=== PATIENT | female | born 1985 | race Caucasian/White ===

== ENCOUNTER 2016-06-14 16:46 | Emergency (ER) | payer OTHER ==
--- NOTE | 2016-06-14 18:38 | DIAGNOSTIC IMAGING REPORT ---
PROCEDURE: US SOFT TISSUE ANYWHERE INDICATION: ABSCESS TECHNIQUE: Parks scale and color Doppler sonographic images of the right lower dense abdominal wall were obtained COMPARISON: None. FINDINGS: Subcutaneous tissues are within normal limits. No evidence of fluid collection or abscess. IMPRESSION: 1. Negative ultrasound of the right lower ventral abdominal wall.
--- NOTE | 2016-06-14 20:46 | ED ORDER SUMMARY ---
..... Patient: FABIANO NOE OrderSheet [facility] VisitID: [id number] [place] [address] 30y, F Registration Date/Time: 06/14/2016 ORDER SHEET Weight: 110.2 kg (stated) Allergies: Morphine Sulfate, Tylenol, Vicoden GENERAL ORDERS: Blood Culture (No) (N/A) Urgent (17:51 06/14/2016 Vu GUNTER) (Ack 18:07 LMuller) (18:56 JSimbeck R.N.) US Soft Tissue Anywhere (abdominal wall) (evaluate for depth and extent of potential abdominal wall abscess. ) Urgent (17:52 06/14/2016 Vu GUNTER) (Ack 18:07 LMuller) (18:59 JSimbeck R.N.) CBC w Diff Urgent (17:53 06/14/2016 Vu GUNTER) (Ack 18:07 LMuller) (18:56 JSimbeck R.N.) Serum Quantitative Urgent (17:53 06/14/2016 Vu GUNTER) (Ack 18:07 LMuller) (18:56 JSimbeck R.N.) Culture, Wound Surface (Abdomen) (drainage) Urgent (18:57 06/14/2016 JSimbeck R.N. verbal order read back to Vu GUNTER) (18:57 JSimbeck R.N.) MEDICATION ORDERS: IV FLUIDS: IV Saline Lock (17:53 06/14/2016 Vu GUNTER) (18:56 JSimbeck R.N.) Cleocin IV 900 mg/50mL (NOW) (19:18 06/14/2016 Vu GUNTER) (19:27 EInderbitzen R.N.) ORDER SHEET NOTES: [Electronically signed by Libby Morales R.N. (21:04 06/14/2016)] [Electronically signed by Kunal Self MD (13:55 06/15/2016)] [Electronically locked/signed by Libby Morales R.N. (21:04 06/14/2016)]
--- NOTE | 2016-06-14 20:46 | ED CLINICAL REPORT ---
Clinical Report - Physicians/Mid Levels [facility] [address] [place] [address] 06/14/2016 16:47 Patient: FABIANO NOE Time Seen: 17:09. Arrived- By private vehicle. Historian- patient and significant other. CPT: ER phys charges level 4 (#[id number]). HISTORY OF PRESENT ILLNESS Chief Complaint: SKIN RASH. This started about 2 days [employer] and is still present. It is described as painful. It has been located on the right abdomen. A possible cause has been identified. (Pt states she noticed a pustule then popped it with a pin. Redness developed around lesion after that.). Similar symptoms previously: None. Recent medical care: The patient was seen recently at another facility in a clinic (today). Diagnosis: cellulitis. ( Sent to ER to r/o abscess and assess .). REVIEW OF SYSTEMS No fever, chills, sore throat, cough or difficulty breathing. No hoarseness, enlarged lymph nodes, eye irritation, chest pain or nausea. No diarrhea, difficulty with urination, joint pain or vomiting. The patient has had mild, constant abdominal pain (superficial related to the cellulitis). All systems otherwise negative, except as recorded above. PAST HISTORY Last normal menstrual period- 04/30. Currently . G 9. P 5. Ab 3. Bronchitis. Dysfunctional Uterine Bleeding. Problems. Pelvic Pain. Abscess. Otitis Media. Abdominal Pain. . Insomnia. Migraine Headache. Depression. Herpes Genitalis. ADDITIONAL SURGERIES: Appendectomy. Cholecystectomy. . Tonsillectomy. Medications: vits. Methadone HCl Oral 50mg , daily. Allergies: Morphine Sulfate. (headache) Tylenol.(rash) Vicoden.(rash). SOCIAL HISTORY Never smoker. No alcohol use or drug use. ADDITIONAL NOTES The nursing notes have been reviewed. PHYSICAL EXAM Vital Signs: 06/14/2016 17:05 BP: 136/81. HR: 100. RR: 20. O2 saturation: 95%. Temp: 98.5 F. Pain level now: 6/10. Appearance: Alert. No acute distress. Eyes: Pupils equal, round and reactive to light. Conjunctivae and eyelids normal. ENT: Nose normal. Pharynx normal. Neck: Neck supple. CVS: Normal heart rate and rhythm. Heart sounds normal. No cardiac murmur. Respiratory: No respiratory distress. Breath sounds normal. Chest nontender. Abdomen: (obese, tender over area of cellulitis only.). Skin: Medium area of cellulitis with erythema and warmth (no fluctuance noted but patient has a large paniculous so makes exam difficult.). Skin rash present. Rash present on the right abdomen. The rash is erythematous and confluent. Not pustular. There is warmth and tenderness. No lymphangitis. Extremities: Normal external inspection. Extremities nontender. Neuro: Oriented X 3. No motor deficit. No sensory deficit. LABS, X-RAYS, AND EKG Abdominal Sonogram: (superficfial cellulitis. Abdominal wall.). Laboratory Tests: CBC w Diff: (TC: 06/14/2016 18:45) ( [facility] 06/14/2016 19:00) Final results Test Result Flag Units (Reference) WHITE BLOOD COUNT 7.6 K/uL (4.5-11.5) RED BLOOD COUNT 4.14 M/uL (4.00-5.20) HEMOGLOBIN 12.0 gm/dL (12.0-16.0) HEMATOCRIT 35.5 L % (36.0-46.0) MEAN CELL VOLUME 86 fL (80-100) MEAN CORPUSCULAR HGB 29 pg (26-34) MEAN CORPUSCULAR HGB CONC 34 g/dL (31-37) RED CELL DISTRIBUTION WIDTH 12.9 % (11.6-14.8) PLATELET COUNT 300 K/uL (150-400) NEUTROPHIL % 55.8 % (50-75) LYMPH % 31.0 % (25-40) MONO % 7.9 % (3-14) EOSINOPHIL % 4.6 H % (0-4) BASOPHIL % 0.7 % (0-2) Serum Quantitative: (TC: 06/14/2016 18:45) ( [facility] 06/14/2016 19:40) Final results Test Result Flag Units (Reference) BETA HCG, QUANTITATIVE 2077 mIU/mL REFERENCE RANGE:Adult Males: <2 mIU/mLNon- Females: <6 mIU/mL Females:Approximate Approximate hCGGestational Age Range (mIU/mL) 0-1 week 0-501-2 weeks 40-3002-3 weeks 100-23003-8 weeks 500-08919-1 months 5,000-200,0002-3 months 10,000-100,0002nd trimester 3,000-50,0003rd trimester 1,000-50,000 Culture, Wound Surface: (TC: 06/14/2016 18:50) ( MsgRcvd 06/15/2016 10:26) IP SPECIMEN DESCRIPTION: DRAINAGE Test Result Flag Units (Reference) GRAM STAIN, WOUND, SUPERFICIAL DATE: 06/14/16 NO CELLS/NO BACTERIA: NO CELLS OR BACTERIA SEEN CULTURE, WOUND, SUPERFICIAL DATE: 06/15/16 PRELIM REPORT: PRELIMINARY REPORT #1 -- STAAUR GROWTH: HEAVY GROWTH ID AND SENS TO FOLLOW: SENSITIVITY TO FOLLOW . PROGRESS AND PROCEDURES Course of Care: Long discussion with patient over the US results and expectations she has of the ER. Pt says she is here to r/o an abscess over the abdominal wall and to have baby checked by US as she thinks she is . Pt indicates she had ad positive test 7 weeks ago . She then had an episode of heavy bleeding so was not sure if she was still . She had subsequent home tests that were positive but because of the bleeding is not sure how far along she is. She insists that she wants an US to see if the baby is healthy because of her history of "uterine rupture" with her last at [facility]. She indicates that she twice and was brought back while on the surgical table. Had to have blood transfusions. She also indicates that her Doctor said it would be OK to get again. I let her know first of all that she did not have an abscess of the abdominal wall and that she needed to be treated with antibiotics and close follow up. Cleocin 900 mg IV given. Secondly I ran a Quantitative HCG showing a level of about 2,000 consistent with a 6-7 week which fits her LMP timing. That there was no obstetric emergency as she had no pain consistent with labor or misscarriage. That she had no vaginal bleeding or discharge. That an emergent US was not indicated despite her and history of "uterine rupture". She was not satisfied with this but I told her I would not do an obstetric US today and that she would have to get her OB Doctor to do this. Pt does not have a PCP or OB Doctor. She is referred to the [facility] clinic for further treatment and evaluation. Patient/family counseled. Disposition: Discharged. Condition: stable. CLINICAL IMPRESSION Cellulitis of the abdominal wall. First trimester ; positive test in emergency department. INSTRUCTIONS Apply moist heat for 15-20 minutes three times a day for seven days until better. Drink plenty of fluids. Warnings: Further evaluation is necessary. Your Current Medications: CONTINUE TAKING THE FOLLOWING MEDICATIONS: Methadone HCl Oral : 50mg daily. vits*. Prescription Medications: Cleocin 300 mg: take 1 capsule orally every 6 hours for 7 days. No refills. Substitution is permissible. OTC Medications: Acetaminophen (available over the counter): take according to label instructions. Understanding of the discharge instructions verbalized by patient. Follow-up with: [facility], , , [address], , [place], [address] Follow up Sunday in two days. Call for the next available appointment. Reason for referral: referred from the ER for cellulitis and evaluation. (Electronically signed by Kunal Self MD 06/15/2016 13:55)
--- NOTE | 2016-06-14 20:46 | ED ORDER SUMMARY ---
..... Patient: FABIANO NOE OrderSheet [facility] VisitID: [id number] [place] [address] 30y, F Registration Date/Time: 06/14/2016 ORDER SHEET Weight: 110.2 kg (stated) Allergies: Morphine Sulfate, Tylenol, Vicoden GENERAL ORDERS: Blood Culture (No) (N/A) Urgent (17:51 06/14/2016 Vu GUNTER) (Ack 18:07 LMuller) (18:56 JSimbeck R.N.) US Soft Tissue Anywhere (abdominal wall) (evaluate for depth and extent of potential abdominal wall abscess. ) Urgent (17:52 06/14/2016 Vu GUNTER) (Ack 18:07 LMuller) (18:59 JSimbeck R.N.) CBC w Diff Urgent (17:53 06/14/2016 Vu GUNTER) (Ack 18:07 LMuller) (18:56 JSimbeck R.N.) Serum Quantitative Urgent (17:53 06/14/2016 Vu GUNTER) (Ack 18:07 LMuller) (18:56 JSimbeck R.N.) Culture, Wound Surface (Abdomen) (drainage) Urgent (18:57 06/14/2016 JSimbeck R.N. verbal order read back to Vu GUNTER) (18:57 JSimbeck R.N.) MEDICATION ORDERS: IV FLUIDS: IV Saline Lock (17:53 06/14/2016 Vu GUNTER) (18:56 JSimbeck R.N.) Cleocin IV 900 mg/50mL (NOW) (19:18 06/14/2016 Vu GUNTER) (19:27 EInderbitzen R.N.) ORDER SHEET NOTES: [Electronically signed by Libby Morales R.N. (21:04 06/14/2016)] [Electronically signed by Kunal Self MD (13:55 06/15/2016)] [Electronically locked/signed by Libby Morales R.N. (21:04 06/14/2016)]
--- NOTE | 2016-06-14 20:46 | ED NURSING NOTES ---
Clinical Report - Nurses [facility] [address] [place] [address] 06/14/2016 16:47 Patient: FABIANO NOE TRIAGE Triage time 1708. Acuity: LEVEL 3. Chief Complaint: BOIL and TENDER AREA. --17:22 Natalie Monroy R.N. 17:05 06/14/16. BP: 136/81. HR: 100. RR: 20. O2 saturation: 95% on room air. Temp: 98.5 F. Pain level now: 10/14. --17:22 Natalie Monroy R.N. Weight: 110.2 kg stated. Height/Length: 61 inches Per Patient. BMI: 45.9. --17:19 Natalie Monroy R.N. Medications Methadone HCl Oral 50mg , daily. --17:19 Natalie Monroy R.N. vits. --17:19 Natalie Monroy R.N. Allergies Morphine Sulfate. (headache) Tylenol.(rash) Vicoden.(rash) --17:19 Natalie Monroy R.N. History Arrived by private vehicle. Historian: patient. Accompanied by friend. Primary physician (sandeep). Reported as (Rt lower abd wall redness x 2-3 days, increased pain today, [facility] and told to go to ED for US to determin depth of abscess and possibly to guide I&D). It is described as burning and painful. ( Pt has had positive preg tests, but no US done). PAST MEDICAL HX: Last normal menstrual period- 04/30. Currently . G 9. P 5. Ab 3. ( Hx of MRSA). SOCIAL HX: Never smoker. No alcohol use or drug use. --17:22 Natalie Monroy R.N. PROBLEMS: Bronchitis. Dysfunctional Uterine Bleeding. Problems. Pelvic Pain. Abscess. Otitis Media. Abdominal Pain. . Insomnia. Migraine Headache. Depression. Herpes Genitalis. --17:18 Natalie Monroy R.N. ADDITIONAL SURGERIES: Appendectomy. Cholecystectomy. . Tonsillectomy. --17:18 Natalie Monroy R.N. Interventions ID band on patient. To treatment room. --17:22 Natalie Monroy R.N. PHYSICAL ASSESSMENT 17:08. Patient gowned. GENERAL / NEURO / PSYCH: Alert. The patient does not appear to be in acute distress. Oriented X 4. HEENT: Mucous membranes are pink. RESPIRATORY: Respirations not labored. CVS: Capillary refill less than 2 seconds. SKIN: Skin is warm and dry. Purulent drainage. Skin tenderness present. Increased warmth present. Erythema present. --17:23 Natalie Monroy R.N. NURSING PROGRESS NOTES 17:08. Patient gowned. Head of bed elevated. Reassurance given. Patient identifiers checked. Call light placed in reach. Side rails up. Bed placed in lowest position. Patient ready for evaluation- chart flagged. --17:22 Natalie Monroy R.N. 18:45 06/14/2016 Site #1 started via IV in the left antecubital space with an 20g angiocath, with aseptic technique and good blood return; two attempts. Blood drawn: rainbow set and cultures x1. Labeled in the presence of the patient and sent to the lab. Saline lock flushed with 10 mL saline. --18:56 Jani Nevarez R.N. 19:03 06/14/16. Care transferred and report received (from REAGAN Gunter). --19:03 Libby Morales R.N. 19:26 06/14/2016 Started 900 mg of Cleocin (Clindamycin Phosphate) IVPB in bag #1 50 mL; at 50 mL/hr over 60 minute(s) via site #1; Allergies verified and confirmed 5 rights. IV patency established. IV site checked: no pain, redness, or swelling. IV flushed thoroughly pre- and post-medication administration. --19:27 Libby Morales R.N. late entry - 20:05 06/14/16. ( Patient disconnected her IV antibiotics and clamped iv site. Site remains patent. flushed with 10 ml nss and reclamped). --21:00 Libby Morales R.N. 20:05 06/14/2016 Cleocin IVPB Discontinued: completed. Total amount infused: 50 mL. --20:35 Libby Morales R.N. 20:50 06/14/2016 Site #1 removed upon discharge. Bandaid applied (Patient removed her own IV stating she was "in a hurry to leave" she put the IV catheter in the sharps container. No bleeding from IV site observed at discharge). --21:02 Libby Morales R.N. DISPOSITION / DISCHARGE 20:50 06/14/16. Departure time: 20:50 Jun 14 2016. Condition at departure: improved and stable. The goals identified in the patient's plan of care were met. No learning barriers present. Discharge instructions provided and reviewed with the patient. Reviewed medication(s) side effects, precautions, dosing and course information. Prescription(s) given to the patient (clindamycin). Reviewed referral to an dispensing optician apprentice for followup and testing. Summary of care provided to patient. Patient verbalized understanding. Written instructions provided in [place]. The patient was discharged home and accompanied by family. She left the Emergency Department ambulatory and via private vehicle. Family member driving. --21:03 Libby Morales R.N. 17:05 06/14/16. BP: 136/81. HR: 100. RR: 20. O2 saturation: 95% on room air. Temp: 98.5 F. Pain level now: 10/14. --21:03 Libby Morales R.N. Locked/Released at 06/14/2016 21:04 by Libby Morales R.N.
--- NOTE | 2016-06-14 20:46 | ED NURSING NOTES ---
Clinical Report - Nurses [facility] [address] [place] [address] 06/14/2016 16:47 Patient: FABAINO NOE TRIAGE Triage time 1708. Acuity: LEVEL 3. Chief Complaint: BOIL and TENDER AREA. --17:22 Natalie Monroy R.N. 17:05 06/14/16. BP: 136/81. HR: 100. RR: 20. O2 saturation: 95% on room air. Temp: 98.5 F. Pain level now: 10/14. --17:22 Natalie Monroy R.N. Weight: 110.2 kg stated. Height/Length: 61 inches Per Patient. BMI: 45.9. --17:19 Natalie Monroy R.N. Medications Methadone HCl Oral 50mg , daily. --17:19 Natalie Monroy R.N. vits. --17:19 Natalie Monroy R.N. Allergies Morphine Sulfate. (headache) Tylenol.(rash) Vicoden.(rash) --17:19 Natalie Monroy R.N. History Arrived by private vehicle. Historian: patient. Accompanied by friend. Primary physician (sandeep). Reported as (Rt lower abd wall redness x 2-3 days, increased pain today, [facility] told to go to ED for US to determin depth of abscess and possibly to guide I&D). It is described as burning and painful. ( Pt has had positive preg tests, but no US done). PAST MEDICAL HX: Last normal menstrual period- 04/30. Currently . G 9. P 5. Ab 3. ( Hx of MRSA). SOCIAL HX: Never smoker. No alcohol use or drug use. --17:22 Natalie Monroy R.N. PROBLEMS: Bronchitis. Dysfunctional Uterine Bleeding. Problems. Pelvic Pain. Abscess. Otitis Media. Abdominal Pain. . Insomnia. Migraine Headache. Depression. Herpes Genitalis. --17:18 Natalie Monroy R.N. ADDITIONAL SURGERIES: Appendectomy. Cholecystectomy. . Tonsillectomy. --17:18 Natalie Monroy R.N. Interventions ID band on patient. To treatment room. --17:22 Natalie Monroy R.N. PHYSICAL ASSESSMENT 17:08. Patient gowned. GENERAL / NEURO / PSYCH: Alert. The patient does not appear to be in acute distress. Oriented X 4. HEENT: Mucous membranes are pink. RESPIRATORY: Respirations not labored. CVS: Capillary refill less than 2 seconds. SKIN: Skin is warm and dry. Purulent drainage. Skin tenderness present. Increased warmth present. Erythema present. --17:23 Natalie Monroy R.N. NURSING PROGRESS NOTES 17:08. Patient gowned. Head of bed elevated. Reassurance given. Patient identifiers checked. Call light placed in reach. Side rails up. Bed placed in lowest position. Patient ready for evaluation- chart flagged. --17:22 Natalie Monroy R.N. 18:45 06/14/2016 Site #1 started via IV in the left antecubital space with an 20g angiocath, with aseptic technique and good blood return; two attempts. Blood drawn: rainbow set and cultures x1. Labeled in the presence of the patient and sent to the lab. Saline lock flushed with 10 mL saline. --18:56 Jani Nevarez R.N. 19:03 06/14/16. Care transferred and report received (from REAGAN Gunter). --19:03 Libby Morales R.N. 19:26 06/14/2016 Started 900 mg of Cleocin (Clindamycin Phosphate) IVPB in bag #1 50 mL; at 50 mL/hr over 60 minute(s) via site #1; Allergies verified and confirmed 5 rights. IV patency established. IV site checked: no pain, redness, or swelling. IV flushed thoroughly pre- and post-medication administration. --19:27 Libby Morales R.N. late entry - 20:05 06/14/16. ( Patient disconnected her IV antibiotics and clamped iv site. Site remains patent. flushed with 10 ml nss and reclamped). --21:00 Libby Morales R.N. 20:05 06/14/2016 Cleocin IVPB Discontinued: completed. Total amount infused: 50 mL. --20:35 Libby Morales R.N. 20:50 06/14/2016 Site #1 removed upon discharge. Bandaid applied (Patient removed her own IV stating she was "in a hurry to leave" she put the IV catheter in the sharps container. No bleeding from IV site observed at discharge). --21:02 Libby Morales R.N. DISPOSITION / DISCHARGE 20:50 06/14/16. Departure time: 20:50 Jun 14 2016. Condition at departure: improved and stable. The goals identified in the patient's plan of care were met. No learning barriers present. Discharge instructions provided and reviewed with the patient. Reviewed medication(s) side effects, precautions, dosing and course information. Prescription(s) given to the patient (clindamycin). Reviewed referral to an disassembler product for followup and testing. Summary of care provided to patient. Patient verbalized understanding. Written instructions provided in [place]ym[place]. The patient was discharged home and accompanied by family. She left the Emergency Department ambulatory and via private vehicle. Family member driving. --21:03 Libby Morales R.N. 17:05 06/14/16. BP: 136/81. HR: 100. RR: 20. O2 saturation: 95% on room air. Temp: 98.5 F. Pain level now: 10/14. --21:03 Libby Morales R.N. Locked/Released at 06/14/2016 21:04 by Libby Morales R.N.
--- NOTE | 2016-06-14 20:46 | ED CLINICAL REPORT ---
Clinical Report - Physicians/Mid Levels [facility] [address] [place] [address] 06/14/2016 16:47 Patient: FABIANO NOE Time Seen: 17:09. Arrived- By private vehicle. Historian- patient and significant other. CPT: ER phys charges level 4 (#[id number]). HISTORY OF PRESENT ILLNESS Chief Complaint: SKIN RASH. 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 It is described as painful. It has been located on the right abdomen. A possible cause has been identified. (Pt states she noticed a pustule then popped it with a pin. Redness developed around lesion after that.). Similar symptoms previously: None. Recent medical care: The patient was seen recently at another facility in a clinic (today). Diagnosis: cellulitis. ( Sent to ER to r/o abscess and assess .). REVIEW OF SYSTEMS No fever, chills, sore throat, cough or difficulty breathing. No hoarseness, enlarged lymph nodes, eye irritation, chest pain or nausea. No diarrhea, difficulty with urination, joint pain or vomiting. The patient has had mild, constant abdominal pain (superficial related to the cellulitis). All systems otherwise negative, except as recorded above. PAST HISTORY Last normal menstrual period- 04/30. Currently . G 9. P 5. Ab 3. Bronchitis. Dysfunctional Uterine Bleeding. Problems. Pelvic Pain. Abscess. Otitis Media. Abdominal Pain. . Insomnia. Migraine Headache. Depression. Herpes Genitalis. ADDITIONAL SURGERIES: Appendectomy. Cholecystectomy. . Tonsillectomy. Medications: vits. Methadone HCl Oral 50mg , daily. Allergies: Morphine Sulfate. (headache) Tylenol.(rash) Vicoden.(rash). SOCIAL HISTORY Never smoker. No alcohol use or drug use. ADDITIONAL NOTES The nursing notes have been reviewed. PHYSICAL EXAM Vital Signs: 06/14/2016 17:05 BP: 136/81. HR: 100. RR: 20. O2 saturation: 95%. Temp: 98.5 F. Pain level now: 6/10. Appearance: Alert. No acute distress. Eyes: Pupils equal, round and reactive to light. Conjunctivae and eyelids normal. ENT: Nose normal. Pharynx normal. Neck: Neck supple. CVS: Normal heart rate and rhythm. Heart sounds normal. No cardiac murmur. Respiratory: No respiratory distress. Breath sounds normal. Chest nontender. Abdomen: (obese, tender over area of cellulitis only.). Skin: Medium area of cellulitis with erythema and warmth (no fluctuance noted but patient has a large paniculous so makes exam difficult.). Skin rash present. Rash present on the right abdomen. The rash is erythematous and confluent. Not pustular. There is warmth and tenderness. No lymphangitis. Extremities: Normal external inspection. Extremities nontender. Neuro: Oriented X 3. No motor deficit. No sensory deficit. LABS, X-RAYS, AND EKG Abdominal Sonogram: (superficfial cellulitis. Abdominal wall.). Laboratory Tests: CBC w Diff: (TC: 06/14/2016 18:45) ( [facility] 06/14/2016 19:00) Final results Test Result Flag Units (Reference) WHITE BLOOD COUNT 7.6 K/uL (4.5-11.5) RED BLOOD COUNT 4.14 M/uL (4.00-5.20) HEMOGLOBIN 12.0 gm/dL (12.0-16.0) HEMATOCRIT 35.5 L % (36.0-46.0) MEAN CELL VOLUME 86 fL (80-100) MEAN CORPUSCULAR HGB 29 pg (26-34) MEAN CORPUSCULAR HGB CONC 34 g/dL (31-37) RED CELL DISTRIBUTION WIDTH 12.9 % (11.6-14.8) PLATELET COUNT 300 K/uL (150-400) NEUTROPHIL % 55.8 % (50-75) LYMPH % 31.0 % (25-40) MONO % 7.9 % (3-14) EOSINOPHIL % 4.6 H % (0-4) BASOPHIL % 0.7 % (0-2) Serum Quantitative: (TC: 06/14/2016 18:45) ( [facility] 06/14/2016 19:40) Final results Test Result Flag Units (Reference) BETA HCG, QUANTITATIVE 2077 mIU/mL REFERENCE RANGE:Adult Males: <2 mIU/mLNon- Females: <6 mIU/mL Females:Approximate Approximate hCGGestational Age Range (mIU/mL) 0-1 week 0-501-2 weeks 40-3002-3 weeks 100-86283-9 weeks 500-77427-6 months 5,000-200,0002-3 months 10,000-100,0002nd trimester 3,000-50,0003rd trimester 1,000-50,000 Culture, Wound Surface: (TC: 06/14/2016 18:50) ( [facility] 06/15/2016 10:26) IP SPECIMEN DESCRIPTION: DRAINAGE Test Result Flag Units (Reference) GRAM STAIN, WOUND, SUPERFICIAL DATE: 06/14/16 NO CELLS/NO BACTERIA: NO CELLS OR BACTERIA SEEN CULTURE, WOUND, SUPERFICIAL DATE: 06/15/16 PRELIM REPORT: PRELIMINARY REPORT #1 -- STAAUR GROWTH: HEAVY GROWTH ID AND SENS TO FOLLOW: SENSITIVITY TO FOLLOW . PROGRESS AND PROCEDURES Course of Care: Long discussion with patient over the US results and expectations she has of the ER. Pt says she is here to r/o an abscess over the abdominal wall and to have baby checked by US as she thinks she is . Pt indicates she had ad positive test 7 weeks ago . She then had an episode of heavy bleeding so was not sure if she was still . She had subsequent home tests that were positive but because of the bleeding is not sure how far along she is. She insists that she wants an US to see if the baby is healthy because of her history of "uterine rupture" with her last at [facility]. She indicates that she twice and was brought back while on the surgical table. Had to have blood transfusions. She also indicates that her Doctor said it would be OK to get again. I let her know first of all that she did not have an abscess of the abdominal wall and that she needed to be treated with antibiotics and close follow up. Cleocin 900 mg IV given. Secondly I ran a Quantitative HCG showing a level of about 2,000 consistent with a 6-7 week which fits her LMP timing. That there was no obstetric emergency as she had no pain consistent with labor or misscarriage. That she had no vaginal bleeding or discharge. That an emergent US was not indicated despite her and history of "uterine rupture". She was not satisfied with this but I told her I would not do an obstetric US today and that she would have to get her OB Doctor to do this. Pt does not have a PCP or OB Doctor. She is referred to the [facility] clinic for further treatment and evaluation. Patient/family counseled. Disposition: Discharged. Condition: stable. CLINICAL IMPRESSION Cellulitis of the abdominal wall. First trimester ; positive test in emergency department. INSTRUCTIONS Apply moist heat for 15-20 minutes three times a day for seven days until better. Drink plenty of fluids. Warnings: Further evaluation is necessary. Your Current Medications: CONTINUE TAKING THE FOLLOWING MEDICATIONS: Methadone HCl Oral : 50mg daily. vits*. Prescription Medications: Cleocin 300 mg: take 1 capsule orally every 6 hours for 7 days. No refills. Substitution is permissible. OTC Medications: Acetaminophen (available over the counter): take according to label instructions. Understanding of the discharge instructions verbalized by patient. Follow-up with: [facility], , , [address], , [place], [id number] Follow up Sunday in two days. Call for the next available appointment. Reason for referral: referred from the ER for cellulitis and evaluation. (Electronically signed by Kunal Self MD 06/15/2016 13:55)
--- NOTE | 2016-06-15 13:55 | ED MAR SUMMARY ---
..... Medication Administration Record [facility] [address] [place] [address] Patient: FABIANO NOE Visit ID: [id number] 30y, F Weight: 110.2 kg Height/Length: 61 in BMI: 45.9 ALLERGIES: Morphine Sulfate, Tylenol, Vicoden Start 19:26 06/14/2016 Libby Morales R.N., Stop 20:05 06/14/2016 Libby Morales R.N. Medication Administered: CLEOCIN [IVPB] (CLINDAMYCIN PHOSPHATE), Dose: 900 mg IVPB over 60 minute(s), Rate: 50 mL/hr, Dispensed: 50 mL bag, Site: #1 left . Medication Ordered: Cleocin IV 900 mg/50mL (NOW).
--- NOTE | 2016-06-15 13:55 | ED MED RECONCILIATION SUMMARY ---
Patient: FABIANO NOE Medication Reconciliation Report [facility] VisitID: [id number] [address] [place] [address] 30y, F Registration Date/Time: 06/14/2016 Weight: 110.2 kg Height/Length: 61 in. BMI: 45.9 ALLERGIES: Morphine Sulfate, Tylenol, Vicoden The patient's Home Medications are listed below: CONTINUE TAKING THE FOLLOWING MEDICATIONS: Methadone HCl Oral 50mg , daily vits The source(s) of the original Home Medication information: Not obtained. The following Medications were given to the patient in the Emergency Department: Cleocin [IVPB] IVPB bolus 0, then 900 mg 50 mL/hr, administered: 06/14/2016 7:26:00 PM The following Medications were prescribed to the patient: Acetaminophen (available over the counter): take according to label instructions. -- Kunal Self MD Cleocin 300 mg: take 1 capsule orally every 6 hours for 7 days. No refills. Substitution is permissible. -- Kunal Self MD
--- NOTE | 2016-06-15 13:55 | ED MAR SUMMARY ---
..... Medication Administration Record [facility] [address] [place] [address] Patient: FABIANO NOE Visit ID: [id number] 30y, F Weight: 110.2 kg Height/Length: 61 in BMI: 45.9 ALLERGIES: Morphine Sulfate, Tylenol, Vicoden Start 19:26 06/14/2016 Libby Morales R.N., Stop 20:05 06/14/2016 Libby Morales R.N. Medication Administered: CLEOCIN [IVPB] (CLINDAMYCIN PHOSPHATE), Dose: 900 mg IVPB over 60 minute(s), Rate: 50 mL/hr, Dispensed: 50 mL bag, Site: #1 left . Medication Ordered: Cleocin IV 900 mg/50mL (NOW).
--- NOTE | 2016-06-15 13:55 | ED DISCHARGE INSTRUCTIONS ---
Patient: FABIANO NOE General Instructions [facility] VisitID: [id number] [address] [place] [place] [address] 30y, F Registration Date/Time: 06/14/2016 Cellulitis of the abdominal wall. First trimester ; positive test in emergency department. INSTRUCTIONS Apply moist heat for 15-20 minutes three times a day for seven days until better. Drink plenty of fluids. Warnings: Further evaluation is necessary. Your Current Medications: CONTINUE TAKING THE FOLLOWING MEDICATIONS: Methadone HCl Oral : 50mg daily. vits*. Prescription Medications: Cleocin 300 mg: take 1 capsule orally every 6 hours for 7 days. No refills. Substitution is permissible. OTC Medications: Acetaminophen (available over the counter): take according to label instructions. Understanding of the discharge instructions verbalized by patient. Follow-up with: [facility], , , [address], [place], [id number] Follow up Sunday in two days. Call for the next available appointment. Reason for referral: referred from the ER for cellulitis and evaluation. ADDITIONAL INFORMATION Cellulitis You have an infection of the skin known as cellulitis. This usually starts with a scrape, cut, insect bite, blister or other opening in the skin which becomes infected. This is a serious condition. It must be watched closely to be sure the infection is not spreading. With antibiotic treatment, the size of the red area will gradually shrink in size until the skin returns to normal. This will take 7-10 days. The red area should never increase in size once the antibiotic medicine has been started. Occasionally, an infection will be resistant to one antibiotic and another one will have to be used. Home Care: 1) Limit the use of the affected part, since excess movement can cause the infection to spread. 2) If the infection is on your leg, walk as little as possible during the first few days of the treatment. Keep your leg elevated while sitting. This will reduce swelling. 3) Take all of the antibiotic medicine exactly as directed until it is gone. Be careful not to miss any doses, especially during the first seven days. Follow Up with your doctor or this facility as directed. Check the infected area daily for the warning signs listed below. Get Prompt Medical Attention if any of the following occur: -- Spreading area of redness -- Increasing swelling or pain -- Appearance of pus or drainage -- Fever over 100.4 F (38.0 C) oral, or over 101.4 F (38.6 C) rectal, after two days on antibiotics Your exam today shows that you are . During , it is normal to develop tender swollen breasts, frequent urination and mild vaginal discharge. During the first three months, nausea is common. Guidelines For A Healthy : To ensure that your baby is born healthy there are certain things that you can do: When you feel tired, you should REST. This is especially true in the later months of . Your body needs more FLUIDS than you may be used to: You should drink 8-10 glasses of juice, milk or water. Eat well-balanced MEALS at regular intervals to supply your body with enough protein. You can expect a total weight gain of about 30 pounds during the . Do not try to diet or lose weight while you are . Because of the extra nutritional needs during , take one VITAMIN daily. Do not take any other MEDICINE during your (prescribed or [id number]) unless your doctor specifically recommends this. Many drugs can have harmful effects on the growing baby. If NAUSEA or VOMITING become a problem, avoid greasy and fried foods. Eat several smaller meals throughout the day rather than three large meals. If you SMOKE, you must stop. The nicotine you breathe in goes right to the baby. Stay away from ALCOHOL, even in moderate amounts. Daily drinking will harm your baby and can cause permanent brain damage. RECREATIONAL DRUGS are harmful, especially cocaine, crack, and heroin. Marijuana should also be avoided. If you were using recreational drugs or prescribed medicine when you found out that you were , talk to your doctor about possible effects on the fetus. Follow Up: Call to arrange for care. This can be provided by your family doctor, an weaver apprentice ( specialist) or a primary care clinic. Get Prompt Medical Attention if any of the following occur: Vaginal bleeding Moderate or severe abdominal or back pain Excessive vomiting, unable to keep any fluids down for six hours Burning with urination Headache, dizziness or rapid weight gain You have been given the following additional information: Cellulitis , New Dx (Electronically signed by Kunal Self MD 06/15/2016 13:55)
--- NOTE | 2016-06-15 13:55 | ED MED RECONCILIATION SUMMARY ---
Patient: FABIANO NOE Medication Reconciliation Report [facility] VisitID: [id number] [address] [place] [address] 30y, F Registration Date/Time: 06/14/2016 Weight: 110.2 kg Height/Length: 61 in. BMI: 45.9 ALLERGIES: Morphine Sulfate, Tylenol, Vicoden The patient's Home Medications are listed below: CONTINUE TAKING THE FOLLOWING MEDICATIONS: Methadone HCl Oral 50mg , daily vits The source(s) of the original Home Medication information: Not obtained. The following Medications were given to the patient in the Emergency Department: Cleocin [IVPB] IVPB bolus 0, then 900 mg 50 mL/hr, administered: 06/14/2016 7:26:00 PM The following Medications were prescribed to the patient: Acetaminophen (available over the counter): take according to label instructions. -- Kunal Self MD Cleocin 300 mg: take 1 capsule orally every 6 hours for 7 days. No refills. Substitution is permissible. -- Kunal Self MD
--- NOTE | 2016-06-15 13:55 | ED DISCHARGE INSTRUCTIONS ---
Patient: FABIANO NOE General Instructions [facility] VisitID: [id number] [address] [place] [address] 30y, F Registration Date/Time: 06/14/2016 Cellulitis of the abdominal wall. First trimester ; positive test in emergency department. INSTRUCTIONS Apply moist heat for 15-20 minutes three times a day for seven days until better. Drink plenty of fluids. Warnings: Further evaluation is necessary. Your Current Medications: CONTINUE TAKING THE FOLLOWING MEDICATIONS: Methadone HCl Oral : 50mg daily. vits*. Prescription Medications: Cleocin 300 mg: take 1 capsule orally every 6 hours for 7 days. No refills. Substitution is permissible. OTC Medications: Acetaminophen (available over the counter): take according to label instructions. Understanding of the discharge instructions verbalized by patient. Follow-up with: [facility], , , [address], [place], [id number] Follow up Sunday in two days. Call for the next available appointment. Reason for referral: referred from the ER for cellulitis and evaluation. ADDITIONAL INFORMATION Cellulitis You have an infection of the skin known as cellulitis. This usually starts with a scrape, cut, insect bite, blister or other opening in the skin which becomes infected. This is a serious condition. It must be watched closely to be sure the infection is not spreading. With antibiotic treatment, the size of the red area will gradually shrink in size until the skin returns to normal. This will take 7-10 days. The red area should never increase in size once the antibiotic medicine has been started. Occasionally, an infection will be resistant to one antibiotic and another one will have to be used. Home Care: 1) Limit the use of the affected part, since excess movement can cause the infection to spread. 2) If the infection is on your leg, walk as little as possible during the first few days of the treatment. Keep your leg elevated while sitting. This will reduce swelling. 3) Take all of the antibiotic medicine exactly as directed until it is gone. Be careful not to miss any doses, especially during the first seven days. Follow Up with your doctor or this facility as directed. Check the infected area daily for the warning signs listed below. Get Prompt Medical Attention if any of the following occur: -- Spreading area of redness -- Increasing swelling or pain -- Appearance of pus or drainage -- Fever over 100.4 F (38.0 C) oral, or over 101.4 F (38.6 C) rectal, after two days on antibiotics Your exam today shows that you are . During , it is normal to develop tender swollen breasts, frequent urination and mild vaginal discharge. During the first three months, nausea is common. Guidelines For A Healthy : To ensure that your baby is born healthy there are certain things that you can do: When you feel tired, you should REST. This is especially true in the later months of . Your body needs more FLUIDS than you may be used to: You should drink 8-10 glasses of juice, milk or water. Eat well-balanced MEALS at regular intervals to supply your body with enough protein. You can expect a total weight gain of about 30 pounds during the . Do not try to diet or lose weight while you are . Because of the extra nutritional needs during , take one VITAMIN daily. Do not take any other MEDICINE during your (prescribed or ahkn-gtq-[id number]) unless your doctor specifically recommends this. Many drugs can have harmful effects on the growing baby. If NAUSEA or VOMITING become a problem, avoid greasy and fried foods. Eat several smaller meals throughout the day rather than three large meals. If you SMOKE, you must stop. The nicotine you breathe in goes right to the baby. Stay away from ALCOHOL, even in moderate amounts. Daily drinking will harm your baby and can cause permanent brain damage. RECREATIONAL DRUGS are harmful, especially cocaine, crack, and heroin. Marijuana should also be avoided. If you were using recreational drugs or prescribed medicine when you found out that you were , talk to your doctor about possible effects on the fetus. Follow Up: Call to arrange for care. This can be provided by your family doctor, an mohs surgeon/general dermatologist ( specialist) or a primary care clinic. Get Prompt Medical Attention if any of the following occur: Vaginal bleeding Moderate or severe abdominal or back pain Excessive vomiting, unable to keep any fluids down for six hours Burning with urination Headache, dizziness or rapid weight gain You have been given the following additional information: Cellulitis , New Dx (Electronically signed by Kunal Self MD 06/15/2016 13:55)
== END 2016-06-14 20:50 | disposition home or self-care (01) ==
LOC: ED SRH 16:46
DX: O99.711 Diseases of the skin and subcutaneous tissue complicating pregnancy, first trimester (principal); L02.211 Cutaneous abscess of abdominal wall; Z3A.01 Less than 8 weeks gestation of pregnancy; Z88.5 Allergy status to narcotic agent; Z88.6 Allergy status to analgesic agent
CPT/HCPCS: 90065; 90070; 90131; 90197; 90309; 91672; 95059

== ENCOUNTER 2016-07-18 11:50 | Emergency (ER) | payer OTHER ==
--- NOTE | 2016-07-18 14:52 | ED CLINICAL REPORT ---
Clinical Report - Physicians/Mid Levels [facility] [address] [place] [address] 07/18/2016 11:51 Patient: FABIANO NOE Time Seen: 1205; initial documentation. Arrived- By private vehicle. Historian- patient. HISTORY OF PRESENT ILLNESS Chief Complaint: ABDOMINAL PAIN. At its maximum, severity described as moderate. When seen in the E.D., severity described as moderate. Modifying factors. Not worsened by anything. Not relieved by anything. This started few days ago and is still present (staying the same). It was abrupt in onset and has been intermittent but is not gone now. It is described as sharp and cramping. No radiation. It is described as located in the lower abdomen. The patient has had nausea, vomiting and diarrhea. No additional abdominal pain. (+ sick contacts. no new unusual food, recent travel, or recent abx. reports being on methadon >80 mg a day. States that it feels like withdrawals. reports not being able to keep the medication down. no vaginal bleeding No abnormal discharge.). No recent travel. Similar symptoms previously: None. Recent medical care: Not recently seen/assessed. REVIEW OF SYSTEMS No fever. All systems otherwise negative, except as recorded above. PAST HISTORY See nurses notes. Medications: Methadone HCl Oral. SOCIAL HISTORY Never smoker. No alcohol use or drug use. No recent travel. Is a local resident. ADDITIONAL NOTES The nursing notes have been reviewed. PHYSICAL EXAM Vital Signs: 07/18/2016 11:58 BP: 119/69. HR: 96. RR: 16. O2 saturation: 98%. Temp: 99.1 F. Pain level now: 7/10. Blood pressure normal. Oxygen saturation normal. Appearance: Alert. Oriented X3. No acute distress. (above average BMI). Eyes: Pupils equal, round and reactive to light. Eyes normal inspection. ENT: Ears normal. Nose normal. Pharynx normal. Neck: Normal inspection. Neck supple. CVS: Normal heart rate and rhythm. Heart sounds normal. Pulses normal. Respiratory: No respiratory distress. Breath sounds normal. Chest nontender. Abdomen: Soft and nontender. Bowel sounds normal. No mass. Skin: Skin warm and dry. Normal skin color. No rash. Normal skin turgor. Extremities: Extremities exhibit normal ROM. No lower extremity edema. LABS, X-RAYS, AND EKG Abdominal Sonogram: (PROCEDURE: US OB 1ST TRIMESTER W/TRANSVAG INDICATION: ABDO PAIN AND CHECK VIABILITY TECHNIQUE: Parks scale, color, and spectral Doppler transabdominal and endovaginal sonographic images of the first trimester gravid uterus were obtained. COMPARISON: None. FINDINGS: TRANSABDOMINAL SCANS: Single intrauterine gestational sac. Normal maternal kidneys. TRANSVAGINAL SCANS: Yolk sac present. [place]-rump length 28.5 mm, 9 weeks 5 days. Heart rate 176 bpm. SUSANNE 02/15/2017. Ovaries are unremarkable. Normal closed cervix measures 4.9 cm. IMPRESSION: 1. Single live intrauterine 9 weeks 5 days). Laboratory Tests: UA-Culture if indicated: (TC: 07/18/2016 12:10) ( [facility] 07/18/2016 12:42) Final results Test Result Flag Units (Reference) URINE COLOR YELLOW URINE APPEARANCE CLEAR URINE GLUCOSE NEGATIVE (NEGATIVE) URINE BILIRUBIN NEGATIVE (NEGATIVE) URINE KETONE NEGATIVE (NEGATIVE) URINE SPECIFIC GRAVITY 1.025 (1.010-1.030) URINE PH 7.0 (5.0-8.0) URINE PROTEIN NEGATIVE (NEGATIVE) URINE UROBILINOGEN 0.2 EU/dL (0.2-1.0) URINE NITRITE NEGATIVE (NEGATIVE) URINE BLOOD NEGATIVE (NEGATIVE) URINE LEUK ESTERASE NEGATIVE (NEGATIVE) URINE RBC NONE SEEN rbc/hpf (0-1) URINE WBC RARE wbc/hpf (0-1) URINE EPITHELIAL CELLS >15 EPI/hpf (0-5) URINE BACTERIA TRACE (<1+) (NONE SEEN) URINE COMMENT CULT NOT INDICATED URINE CULTURES ARE SET-UP BASED ON THE FOLLOWING CRITERIA:POSITIVE NITRITEPOSITIVE LEUKOCYTE ESTERASEGREATER THAN 10 WHITE BLOOD CELLSMODERATE (2+) OR GREATER BACTERIA Urine: (TC: 07/18/2016 12:10) ( [facility] 07/18/2016 12:31) Final results Test Result Flag Units (Reference) URINE POSITIVE CBC w Diff: (TC: 07/18/2016 13:08) ( [facility] 07/18/2016 13:38) Final results Test Result Flag Units (Reference) WHITE BLOOD COUNT 9.9 K/uL (4.5-11.5) RED BLOOD COUNT 4.72 M/uL (4.00-5.20) HEMOGLOBIN 13.8 gm/dL (12.0-16.0) HEMATOCRIT 40.6 % (36.0-46.0) MEAN CELL VOLUME 86 fL (80-100) MEAN CORPUSCULAR HGB 29 pg (26-34) MEAN CORPUSCULAR HGB CONC 34 g/dL (31-37) RED CELL DISTRIBUTION WIDTH 12.9 % (11.6-14.8) NEUTROPHIL % 70.1 % (50-75) LYMPH % 21.4 L % (25-40) MONO % 5.2 % (3-14) EOSINOPHIL % 2.7 % (0-4) BASOPHIL % 0.6 % (0-2) CMP: (TC: 07/18/2016 13:08) ( [facility] 07/18/2016 15:26) Final results Test Result Flag Units (Reference) GLUCOSE 90 mg/dL (70-110) BUN 6 L mg/dL (7-18) CREATININE 0.6 mg/dL (0.6-1.3) Estimated GFR >60 mL/min Estimated GFR- >60 mL/min Note: Persistent reduction over 3 months in eGFR<60 mL/min/1.73 m2 defines CKD. Patients with eGFR values>=60 mL/min/1.73 m2 may also have CKD if evidence ofpersistent proteinuria. Additional information may be foundat www.kidney.org. SODIUM 137 mmol/L (136-145) POTASSIUM 3.7 mmol/L (3.5-5.1) CHLORIDE 102 mmol/L (98-107) CARBON DIOXIDE 27 mmol/L (21-32) CALCIUM 8.8 mg/dL (8.5-10.1) TOTAL PROTEIN 7.3 g/dL (6.4-8.2) ALBUMIN 3.3 g/dL (3.3-5.0) BILIRUBIN, TOTAL 0.5 mg/dL (0.0-1.0) ALKALINE PHOSPHATASE 67 U/L (46-116) AST (SGOT) 106 H U/L (15-37) ALT (SGPT) 138 H U/L (12-78) LIPASE 117 U/L (73-393) BETA HCG, QUANTITATIVE 619853 mIU/mL REFERENCE RANGE:Adult Males: <2 mIU/mLNon- Females: <6 mIU/mL Females:Approximate Approximate hCGGestational Age Range (mIU/mL) 0-1 week 0-501-2 weeks 40-3002-3 weeks 100-74840-1 weeks 500-65680-6 months 5,000-200,0002-3 months 10,000-100,0002nd trimester 3,000-50,0003rd trimester 1,000-50,000 . PROGRESS AND PROCEDURES Course of Care: the patient is a pleasant 30-year-old female presenting for evaluation of nausea and vomiting. At this time differential diagnosis includes thank otitis, hepatitis, orviral type of infectious process. Patient also could have hyperemesis gravidarum. Patient be evaluated with laboratory studies including urinalysis and ultrasound of the patient's current . Patient is agreeable to the treatment and plan. Pain medication has been offered. Patient workup does not show any acute abnormalities. Patient's is noted to be consistent with dates with the being9 weeks and 5 days on an ultrasound here today. Patient is resting in bed and in no acute distress. Symptoms improved dramatically with medication here in the emergency department. Patient's workup was only remarkable for slight elevation in liver enzymes. I discussion with patient in regards to follow up of her liver enzymes. Do not fill this is consistent with help syndrome as the patient is only in the first trimester . Blood pressures also noted to be Within normal limits. I discussion with patient in regards to her workup, diagnosis, home care, follow-up, and return precautions. All questions have been answered. The patient was agreeable to the treatment and plan. Patient is a good outpatient candidate. Patient is already established care with an SEED BUYER. Patient is encouraged to follow up with her Dr. Disposition: Discharged. Condition: good. CLINICAL IMPRESSION Acute abdominal pain. Ultrasound demonstrated an intrauterine . Vomiting with nausea (acute). Diarrhea (acute). 07/18/2016 11:58 BP: 119/69. HR: 96. RR: 16. O2 saturation: 98%. Temp: 99.1 F. Pain level now: 7/10. Blood pressure normal. Oxygen saturation normal. Narcotic withdrawal (acute). mild transaminitis, acute. INSTRUCTIONS Warnings: GENERAL WARNINGS: Return or contact your physician immediately if your condition worsens or changes unexpectedly, if not improving as expected, or if other problems arise. SPECIFICALLY, return if you develop pain, fever, vomiting, the inability to keep fluids down, blood in vomitus, blood in diarrhea, fainting or lightheadedness. Your Current Medications: CONTINUE TAKING THE FOLLOWING MEDICATIONS: Methadone HCl Oral. Prescription Medications: Phenergan 25 mg suppositories: insert 1 rectally every 8 hours as needed for nausea or vomiting. Dispense twenty (20). No refill. Substitution is permissible Follow-up: Return to the emergency department as needed. Follow up with your doctor in three days. Reason for referral: recheck today's concerns. Summary of care provided to patient via paper. Screening today revealed the patient's blood pressure to be in the normal range. The patient should follow up with a primary care provider for blood pressure management. Understanding of the discharge instructions verbalized by patient. (Electronically signed by Quincy Shankar Dr. 07/23/2016 15:50) Addenda for KRAIG NOELalo Villareal VisitID: [id number] Date: 07/18/2016 07/18/2016 17:20 Received call from [facility] regarding pt's script. Pt requesting at pharmacy to change MN phenergan to PO phenergan. Informed that script would not be changed to PO phenergan. Then received call from patient stating she is upset that she was rx'd a MN medication and "there's no way I'm taking anything rectally." Spoke with Dr Shankar, script changed to zofran 4mg ODT q8 hours PRN #10. Zofran script called into pharmacy and instructed pharmacy that zofran is replacing phenergan rx, not to fill phenergan script. (Electronically signed by Antonio Jose R.N. - 07/18/2016 17:20)
--- NOTE | 2016-07-18 14:52 | ED ORDER SUMMARY ---
..... Patient: FABIANO NOE [facility] VisitID[facility] [id number] [place] [address] 30y, F Registration Date/Time: 07/18/2016 ORDER SHEET Weight: 145.1 kg (estimated) Allergies: Morphine Sulfate, Tylenol, Vicoden GENERAL ORDERS: UA-Culture if indicated Urgent (12:11 07/18/2016 RMarsden R.N. per protocol) (Ack 12:12 KHoerner) (12:18 RMarsden R.N.) Urine Urgent (12:15 07/18/2016 RMarsden R.N. per protocol) (Ack 12:16 GINAoerner) (12:18 RMarsden R.N.) (Cancelled: Duplicate Order12:33 Denise Rao) US OB Limited (May 02, 2016) Urgent (12:32 07/18/2016 Denise Rao) (Ack 12:34 Simran) (Cancelled: Duplicate Order12:44 Denise Rao) CBC w Diff Urgent (12:32 07/18/2016 Denise Rao) (Ack 12:34 Simran) (Ack 12:34 RMarsden R.N.) (13:37 KWilliams R.N.) CMP Urgent (12:32 07/18/2016 Denise Rao) (Ack 12:34 Simran) (Ack 12:34 RMarsden R.N.) (13:37 KWilliams R.N.) Lipase Urgent (12:32 07/18/2016 Denise Rao) (Ack 12:34 GINAoerner) (Ack 12:34 RMarsden R.N.) (13:37 KWilliams R.N.) Serum Quantitative Urgent (12:32 07/18/2016 Denise Rao) (Ack 12:34 GINAoerner) (Ack 12:34 RMarsden R.N.) (13:37 KWilliams R.N.) US OB 1st Trimester w Transvag (May 02, 2016) Urgent (12:44 07/18/2016 Denise Rao) (Ack 12:46 Simran) (14:12 KWilliams R.N.) MEDICATION ORDERS: Zofran PO 4 mg (NOW, for Nausea & Vomiting) (12:11 07/18/2016 Jennifer R.N. per protocol) (12:17 RMarsden R.N.) IV FLUIDS: Dilaudid IV 2 mg (HIGH ALERT MEDICATION, NOW) (12:32 07/18/2016 Denise Rao) (Ack 12:33 OLIMPIAarsden R.N.) (13:34 RMarsden R.N.) IV NS : initial bolus 1000 mL (1000 mL/hr), then none - for X1 (NOW) (13:12 07/18/2016 Denise Rao) (Ack 13:24 RMarsden R.N.) (13:32 RMarsden R.N.) ORDER SHEET NOTES: [Electronically signed by Audrey Ulloa R.N. (19:13 07/18/2016)] [Electronically signed by Quincy Shankar Dr. (15:50 07/23/2016)] [Electronically locked/signed by Audrey Ulloa R.N. (19:13 07/18/2016)]
--- NOTE | 2016-07-18 14:52 | ED NURSING NOTES ---
Clinical Report - Nurses [facility] [place] [address] 07/18/2016 11:51 [id number] Triage time 11:58. Acuity: LEVEL 3. Chief Complaint: ABDOMINAL PAIN and CRAMPS. 12:06 07/18/16. Alert. No acute distress. SEPSIS SCREEN: Sepsis Screen. Negative (no infection suspected/documented). RADHA COMA SCORE: Radha Coma Scale: 15- eyes open spontaneously (4); best verbal response- oriented x 4 (5); best motor response- obeys commands (6). --12:06 Audrey Ulloa R.N. 11:58 07/18/16. BP: 119/69. HR: 96. RR: 16. O2 saturation: 98%. Temp: 99.1 F. Pain level now: 11/13. --12:06 Audrey Ulloa R.N. Weight: 145.1 kg estimated. Height/Length: 62 inches Estimated. BMI: 58.6. --13:36 Audrey Ulloa R.N. Medications Methadone HCl Oral. --11:58 Audrey Ulloa R.N. vits. --15:38 Audrey Ulloa R.N. Allergies Morphine Sulfate. (headache) Tylenol.(rash) Vicoden.(rash) --15:38 Audrey Ulloa R.N. History Historian: patient. ( pt states she has been on methadone for 2-3 years. Pt states "I think I'm having pain and vomiting because I'm going through methadone withdrawal.). She has had vomiting. ( light bleeding yesterday). Treatment [employer]: (heating pad, motion sickness). PAST MEDICAL HX: Immunizations: up-to-date. Currently : 10 weeks. In 1st trimester. SOCIAL HX: Never smoker. No alcohol use or drug use. FALL RISK ASSESSMENT: Fall risk assessment completed. No fall risk identified. NUTRITIONAL RISK ASSESSMENT: The nutritional risk assessment revealed no deficiencies. FUNCTIONAL ASSESSMENT: Functional assessment: no impairments noted. LEARNING NEEDS ASSESSMENT: The learning needs assessment revealed no barriers. SKIN INTEGRITY ASSESSMENT: Skin integrity risk assessment completed. No skin integrity risk identified. --12:06 Audrey Ulloa R.N. PROBLEMS: Cellulitis. Bronchitis. Dysfunctional Uterine Bleeding. Problems. Pelvic Pain. Abscess. Viral Disease. Otitis Media. Abdominal Pain. Immunizations. Insomnia. Migraine Headache. Depression. Herpes Genitalis. LNMP - Last Normal Menstrual Period. --11:59 Audrey Ulloa R.N. The following entry was modified by Audrey Ulloa R.N., 12:05 <<STRICKEN ENTRY-- . --21:59 Audrey Ulloa R.N. --END STRIKE>>. ADDITIONAL SURGERIES: Appendectomy. Cholecystectomy. . Tonsillectomy. --12:05 Audrey Ulloa R.N. Interventions ID band on patient. To treatment room. --12:06 Audrey Ulloa R.N. PHYSICAL ASSESSMENT 12:07/18/16. Ambulatory to room. GENERAL / NEURO / PSYCH: Alert. Oriented X 4. Appears in no acute distress. RESPIRATORY: Respirations not labored. CVS: Capillary refill less than 2 seconds. EXTREMITIES: No lower extremity edema. SKIN: Skin is warm and dry. --12:06 Audrey Ulloa R.N. NURSING PROGRESS NOTES 12:07/18/16. Patient gowned. Two patient identifiers checked. Call light placed in reach. Bed placed in lowest position. Brakes of bed on. Patient ready for evaluation- chart flagged and notification provided. Patient and family informed about reason for wait and about plan of care. --12:07 Audrey Ulloa R.N. 12:07/18/2016 Zofran (Ondansetron HCl) PO Tablets 4 mg given. Allergies verified and confirmed 5 rights. --12: Audrey Ulloa R.N. 12:07/18/16. Patient ID band checked for patient name and birthdate: patient confirmed. Instructions provided to collect clean catch urine and patient verbalized understanding. Clean catch urine collected with return of yellow-colored clear urine; sample sent to lab for urinalysis and HCG. Specimen labeled in the presence of the patient. --12: Audrey Ulloa R.N. 13:31 07/18/2016 Site #1 started via IV in the right antecubital space with an 18g angiocath; four attempts. Blood drawn: rainbow set. Labeled in the presence of the patient and sent to the lab. Saline lock flushed with 3 mL saline (This RN made two IV attempts. REAGAN Isaac made 2 attempts.). --13:31 Audrey Ulloa R.N. 13:32 07/18/2016 Started bag #1 1000 mL IV Fluids IV NS (Saline); bolus of 1000 mL wide open via site #1. Allergies verified and confirmed 5 rights. IV patency established. IV site checked: no pain, redness, or swelling. IV flushed thoroughly pre- and post-medication administration. --13:32 Audrey Ulloa R.N. 13:34 07/18/2016 Dilaudid (HYDROmorphone HCl PF) IVP 3 mg given over 2 minute(s) via site #1. Sedative warning given to the patient. IV patency established. IV site checked: no pain, redness, or swelling. IV flushed thoroughly pre- and post-medication administration. IVP given by RN. --13:34 Audrey Ulloa R.N. 13:36 07/18/16. ( 18 gauge placed in RAC with ultrasound guidance x 20 minutes). --13:36 Antonio Jose R.N. 13:44 07/18/16. ( ultrasound in room with pt.). --13:44 Audrey Ulloa R.N. 14:42 07/18/16. Patient informed about reason for wait and about plan of care. ( Pt stated her pain was not relieved by dilaudid. Dr. Shankar notified. Pt is now resting in room with lights dimmed.). --14:43 Audrey Ulloa R.N. DISPOSITION / DISCHARGE 15:37 07/18/16. No learning barriers present. Discharge instructions provided and reviewed with the patient. Reviewed medication(s). Treatments reviewed. Patient verbalized understanding. Written instructions provided in [place]. The patient was discharged by the physician. She was discharged home and accompanied by spouse. She left the Emergency Department ambulatory and via private vehicle. Spouse driving. ( pt waiting in room until gets here.). --15:37 Audrey Ulloa R.N. 15:27 07/18/16. BP: 110/60. HR: 81. RR: 15. O2 saturation: 98%. Temp: deferred. Pain level now: 11/13. --15:37 Audrey Ulloa R.N. Locked/Released at 07/18/2016 19:13 by Audrey Ulloa R.N.
--- NOTE | 2016-07-18 14:52 | ED CLINICAL REPORT ---
Clinical Report - Physicians/Mid Levels [facility] [address] [place] [address] 07/18/2016 11:51 Patient: FABIANO NOE Time Seen: 1205; initial documentation. Arrived- By private vehicle. Historian- patient. HISTORY OF PRESENT ILLNESS Chief Complaint: ABDOMINAL PAIN. At its maximum, severity described as moderate. When seen in the E.D., severity described as moderate. Modifying factors. Not worsened by anything. Not relieved by anything. This started few days ago and is still present (staying the same). It was abrupt in onset and has been intermittent but is not gone now. It is described as sharp and cramping. No radiation. It is described as located in the lower abdomen. The patient has had nausea, vomiting and diarrhea. No additional abdominal pain. (+ sick contacts. no new unusual food, recent travel, or recent abx. reports being on methadon >80 mg a day. States that it feels like withdrawals. reports not being able to keep the medication down. no vaginal bleeding No abnormal discharge.). No recent travel. Similar symptoms previously: None. Recent medical care: Not recently seen/assessed. REVIEW OF SYSTEMS No fever. All systems otherwise negative, except as recorded above. PAST HISTORY See nurses notes. Medications: Methadone HCl Oral. SOCIAL HISTORY Never smoker. No alcohol use or drug use. No recent travel. Is a local resident. ADDITIONAL NOTES The nursing notes have been reviewed. PHYSICAL EXAM Vital Signs: 07/18/2016 11:58 BP: 119/69. HR: 96. RR: 16. O2 saturation: 98%. Temp: 99.1 F. Pain level now: 7/10. Blood pressure normal. Oxygen saturation normal. Appearance: Alert. Oriented X3. No acute distress. (above average BMI). Eyes: Pupils equal, round and reactive to light. Eyes normal inspection. ENT: Ears normal. Nose normal. Pharynx normal. Neck: Normal inspection. Neck supple. CVS: Normal heart rate and rhythm. Heart sounds normal. Pulses normal. Respiratory: No respiratory distress. Breath sounds normal. Chest nontender. Abdomen: Soft and nontender. Bowel sounds normal. No mass. Skin: Skin warm and dry. Normal skin color. No rash. Normal skin turgor. Extremities: Extremities exhibit normal ROM. No lower extremity edema. LABS, X-RAYS, AND EKG Abdominal Sonogram: (PROCEDURE: US OB 1ST TRIMESTER W/TRANSVAG INDICATION: ABDO PAIN AND CHECK VIABILITY TECHNIQUE: Parks scale, color, and spectral Doppler transabdominal and endovaginal sonographic images of the first trimester gravid uterus were obtained. COMPARISON: None. FINDINGS: TRANSABDOMINAL SCANS: Single intrauterine gestational sac. Normal maternal kidneys. TRANSVAGINAL SCANS: Yolk sac present. [place]-rump length 28.5 mm, 9 weeks 5 days. Heart rate 176 bpm. SUSANNE 02/15/2017. Ovaries are unremarkable. Normal closed cervix measures 4.9 cm. IMPRESSION: 1. Single live intrauterine 9 weeks 5 days). Laboratory Tests: UA-Culture if indicated: (TC: 07/18/2016 12:10) ( [facility] 07/18/2016 12:42) Final results Test Result Flag Units (Reference) URINE COLOR YELLOW URINE APPEARANCE CLEAR URINE GLUCOSE NEGATIVE (NEGATIVE) URINE BILIRUBIN NEGATIVE (NEGATIVE) URINE KETONE NEGATIVE (NEGATIVE) URINE SPECIFIC GRAVITY 1.025 (1.010-1.030) URINE PH 7.0 (5.0-8.0) URINE PROTEIN NEGATIVE (NEGATIVE) URINE UROBILINOGEN 0.2 EU/dL (0.2-1.0) URINE NITRITE NEGATIVE (NEGATIVE) URINE BLOOD NEGATIVE (NEGATIVE) URINE LEUK ESTERASE NEGATIVE (NEGATIVE) URINE RBC NONE SEEN rbc/hpf (0-1) URINE WBC RARE wbc/hpf (0-1) URINE EPITHELIAL CELLS >15 EPI/hpf (0-5) URINE BACTERIA TRACE (<1+) (NONE SEEN) URINE COMMENT CULT NOT INDICATED URINE CULTURES ARE SET-UP BASED ON THE FOLLOWING CRITERIA:POSITIVE NITRITEPOSITIVE LEUKOCYTE ESTERASEGREATER THAN 10 WHITE BLOOD CELLSMODERATE (2+) OR GREATER BACTERIA Urine: (TC: 07/18/2016 12:10) ( [facility] 07/18/2016 12:31) Final results Test Result Flag Units (Reference) URINE POSITIVE CBC w Diff: (TC: 07/18/2016 13:08) ( [facility] 07/18/2016 13:38) Final results Test Result Flag Units (Reference) WHITE BLOOD COUNT 9.9 K/uL (4.5-11.5) RED BLOOD COUNT 4.72 M/uL (4.00-5.20) HEMOGLOBIN 13.8 gm/dL (12.0-16.0) HEMATOCRIT 40.6 % (36.0-46.0) MEAN CELL VOLUME 86 fL (80-100) MEAN CORPUSCULAR HGB 29 pg (26-34) MEAN CORPUSCULAR HGB CONC 34 g/dL (31-37) RED CELL DISTRIBUTION WIDTH 12.9 % (11.6-14.8) NEUTROPHIL % 70.1 % (50-75) LYMPH % 21.4 L % (25-40) MONO % 5.2 % (3-14) EOSINOPHIL % 2.7 % (0-4) BASOPHIL % 0.6 % (0-2) CMP: (TC: 07/18/2016 13:08) ( [facility] 07/18/2016 15:26) Final results Test Result Flag Units (Reference) GLUCOSE 90 mg/dL (70-110) BUN 6 L mg/dL (7-18) CREATININE 0.6 mg/dL (0.6-1.3) Estimated GFR >60 mL/min Estimated GFR- >60 mL/min Note: Persistent reduction over 3 months in eGFR<60 mL/min/1.73 m2 defines CKD. Patients with eGFR values>=60 mL/min/1.73 m2 may also have CKD if evidence ofpersistent proteinuria. Additional information may be foundat [email or web address].org. SODIUM 137 mmol/L (136-145) POTASSIUM 3.7 mmol/L (3.5-5.1) CHLORIDE 102 mmol/L (98-107) CARBON DIOXIDE 27 mmol/L (21-32) CALCIUM 8.8 mg/dL (8.5-10.1) TOTAL PROTEIN 7.3 g/dL (6.4-8.2) ALBUMIN 3.3 g/dL (3.3-5.0) BILIRUBIN, TOTAL 0.5 mg/dL (0.0-1.0) ALKALINE PHOSPHATASE 67 U/L (46-116) AST (SGOT) 106 H U/L (15-37) ALT (SGPT) 138 H U/L (12-78) LIPASE 117 U/L (73-393) BETA HCG, QUANTITATIVE 186295 mIU/mL REFERENCE RANGE:Adult Males: <2 mIU/mLNon- Females: <6 mIU/mL Females:Approximate Approximate hCGGestational Age Range (mIU/mL) 0-1 week 0-501-2 weeks 40-3002-3 weeks 100-54380-5 weeks 500-94524-1 months 5,000-200,0002-3 months 10,000-100,0002nd trimester 3,000-50,0003rd trimester 1,000-50,000 . PROGRESS AND PROCEDURES Course of Care: the patient is a pleasant 30-year-old female presenting for evaluation of nausea and vomiting. At this time differential diagnosis includes thank otitis, hepatitis, orviral type of infectious process. Patient also could have hyperemesis gravidarum. Patient be evaluated with laboratory studies including urinalysis and ultrasound of the patient's current . Patient is agreeable to the treatment and plan. Pain medication has been offered. Patient workup does not show any acute abnormalities. Patient's is noted to be consistent with dates with the being9 weeks and 5 days on an ultrasound here today. Patient is resting in bed and in no acute distress. Symptoms improved dramatically with medication here in the emergency department. Patient's workup was only remarkable for slight elevation in liver enzymes. I discussion with patient in regards to follow up of her liver enzymes. Do not fill this is consistent with help syndrome as the patient is only in the first trimester . Blood pressures also noted to be Within normal limits. I discussion with patient in regards to her workup, diagnosis, home care, follow-up, and return precautions. All questions have been answered. The patient was agreeable to the treatment and plan. Patient is a good outpatient candidate. Patient is already established care with an [facility]. Patient is encouraged to follow up with her Dr. Disposition: Discharged. Condition: good. CLINICAL IMPRESSION Acute abdominal pain. Ultrasound demonstrated an intrauterine . Vomiting with nausea (acute). Diarrhea (acute). 07/18/2016 11:58 BP: 119/69. HR: 96. RR: 16. O2 saturation: 98%. Temp: 99.1 F. Pain level now: 7/10. Blood pressure normal. Oxygen saturation normal. Narcotic withdrawal (acute). mild transaminitis, acute. INSTRUCTIONS Warnings: GENERAL WARNINGS: Return or contact your physician immediately if your condition worsens or changes unexpectedly, if not improving as expected, or if other problems arise. SPECIFICALLY, return if you develop pain, fever, vomiting, the inability to keep fluids down, blood in vomitus, blood in diarrhea, fainting or lightheadedness. Your Current Medications: CONTINUE TAKING THE FOLLOWING MEDICATIONS: Methadone HCl Oral. Prescription Medications: Phenergan 25 mg suppositories: insert 1 rectally every 8 hours as needed for nausea or vomiting. Dispense twenty (20). No refill. Substitution is permissible Follow-up: Return to the emergency department as needed. Follow up with your doctor in three days. Reason for referral: recheck today's concerns. Summary of care provided to patient via paper. Screening today revealed the patient's blood pressure to be in the normal range. The patient should follow up with a primary care provider for blood pressure management. Understanding of the discharge instructions verbalized by patient. (Electronically signed by Quincy Shankar Dr. 07/23/2016 15:50) Addenda for KRAIG NOELalo Villareal VisitID: [id number] Date: 07/18/2016 07/18/2016 17:20 Received call from [facility] regarding pt's script. Pt requesting at pharmacy to change HI phenergan to PO phenergan. Informed that script would not be changed to PO phenergan. Then received call from patient stating she is upset that she was rx'd a HI medication and "there's no way I'm taking anything rectally." Spoke with Dr Shankar, script changed to zofran 4mg ODT q8 hours PRN #[id number]. Zofran script called into pharmacy and instructed pharmacy that zofran is replacing phenergan rx, not to fill phenergan script. (Electronically signed by Antonio Jose R.N. - 07/18/2016 17:20)
--- NOTE | 2016-07-18 14:52 | ED ORDER SUMMARY ---
..... Patient: FABIANO NOE OrderSheet [facility] VisitID: [id number] [place] [address] 30y, F Registration Date/Time: 07/18/2016 ORDER SHEET Weight: 145.1 kg (estimated) Allergies: Morphine Sulfate, Tylenol, Vicoden GENERAL ORDERS: UA-Culture if indicated Urgent (12:11 07/18/2016 RMarsden R.N. per protocol) (Ack 12:12 KHoerner) (12:18 RMarsden R.N.) Urine Urgent (12:15 07/18/2016 RMarsden R.N. per protocol) (Ack 12:16 GINAoerner) (12:18 RMarsden R.N.) (Cancelled: Duplicate Order12:33 Denise Rao) US OB Limited (May 02, 2016) Urgent (12:32 07/18/2016 Denise Rao) (Ack 12:34 Simran) (Cancelled: Duplicate Order12:44 Denise Rao) CBC w Diff Urgent (12:32 07/18/2016 Denise Rao) (Ack 12:34 Simran) (Ack 12:34 RMarsden R.N.) (13:37 KWilliams R.N.) CMP Urgent (12:32 07/18/2016 Denise Rao) (Ack 12:34 Simran) (Ack 12:34 RMarsden R.N.) (13:37 KWilliams R.N.) Lipase Urgent (12:32 07/18/2016 Denise Rao) (Ack 12:34 GINAoerner) (Ack 12:34 RMarsden R.N.) (13:37 KWilliams R.N.) Serum Quantitative Urgent (12:32 07/18/2016 Denise Rao) (Ack 12:34 GINAoerner) (Ack 12:34 RMarsden R.N.) (13:37 KWilliams R.N.) US OB 1st Trimester w Transvag (May 02, 2016) Urgent (12:44 07/18/2016 Denise Rao) (Ack 12:46 Simran) (14:12 KWilliams R.N.) MEDICATION ORDERS: Zofran PO 4 mg (NOW, for Nausea & Vomiting) (12:11 07/18/2016 Jennifer R.N. per protocol) (12:17 RMarsden R.N.) IV FLUIDS: Dilaudid IV 2 mg (HIGH ALERT MEDICATION, NOW) (12:32 07/18/2016 Denise Rao) (Ack 12:33 OLIMPIAarsden R.N.) (13:34 RMarsden R.N.) IV NS : initial bolus 1000 mL (1000 mL/hr), then none - for X1 (NOW) (13:12 07/18/2016 Denise Rao) (Ack 13:24 RMarsden R.N.) (13:32 RMarsden R.N.) ORDER SHEET NOTES: [Electronically signed by Audrey Ulloa R.N. (19:13 07/18/2016)] [Electronically signed by Quincy Shankar Dr. (15:50 07/23/2016)] [Electronically locked/signed by Audrey Ulloa R.N. (19:13 07/18/2016)]
--- NOTE | 2016-07-23 15:50 | ED DISCHARGE INSTRUCTIONS ---
Patient: FABIANO NOE General Instructions [facility] VisitID: [id number] [place] [address] 30y, F Registration Date/Time: 07/18/2016 Acute abdominal pain. Ultrasound demonstrated an intrauterine . Vomiting with nausea (acute). Diarrhea (acute). 07/18/2016 11:58 BP: 119/69. HR: 96. RR: 16. O2 saturation: 98%. Temp: 99.1 F. Pain level now: 11/13. Blood pressure normal. Oxygen saturation normal. Narcotic withdrawal (acute). mild transaminitis, acute. INSTRUCTIONS Warnings: GENERAL WARNINGS: Return or contact your physician immediately if your condition worsens or changes unexpectedly, if not improving as expected, or if other problems arise. SPECIFICALLY, return if you develop pain, fever, vomiting, the inability to keep fluids down, blood in vomitus, blood in diarrhea, fainting or lightheadedness. Your Current Medications: CONTINUE TAKING THE FOLLOWING MEDICATIONS: Methadone HCl Oral. Prescription Medications: Phenergan 25 mg suppositories: insert 1 rectally every 8 hours as needed for nausea or vomiting. Dispense twenty (20). No refill. Substitution is permissible Follow-up: Return to the emergency department as needed. Follow up with your doctor in three days. Reason for referral: recheck today's concerns. Summary of care provided to patient via paper. Screening today revealed the patient's blood pressure to be in the normal range. The patient should follow up with a primary care provider for blood pressure management. Understanding of the discharge instructions verbalized by patient. ADDITIONAL INFORMATION Vomiting [6Yr-Adult] Vomiting is a common symptom that may be due to different causes. These include gastroenteritis ("stomach flu"), food poisoning and gastritis. There are other more serious causes of vomiting which may be hard to diagnose early in the illness. Therefore, it is important to watch for the warning signs listed below. The main danger from repeated vomiting is dehydration. This is due to excess loss of water and minerals from the body. When this occurs, body fluids must be replaced. Home Care: If symptoms are severe, rest at home for the next 24 hours. You may use acetaminophen (Tylenol) or ibuprofen (Motrin, Advil) to control fever, unless another medicine was prescribed. [NOTE : If you have chronic liver or kidney disease or ever had a stomach ulcer or GI bleeding, talk with your doctor before using these medicines.] (Aspirin should never be used in anyone under 18 years of age who is ill with a fever. It may cause severe liver damage.) Avoid tobacco and alcohol use, which may worsen your symptoms. If medicines for vomiting were prescribed, take as directed. Once vomiting stops, then follow these guidelines: During The First 12-24 Hours follow the diet below: FRUIT JUICES: Apple, grape juice, clear fruit drinks, and electrolyte replacement drinks. BEVERAGES: Soft drinks without caffeine; mineral water (plain or flavored), decaffeinated tea and coffee. SOUPS: Clear broth, consomm and bouillon DESSERTS: Plain gelatin, popsicles and fruit juice bars. As you feel better, you may add 6-8 ounces of yogurt per day. During The Next 24 Hours you may add the following to the above: Hot cereal, plain toast, bread, rolls, crackers Plain noodles, rice, mashed potatoes, chicken noodle or rice soup Unsweetened canned fruit (avoid pineapple), bananas Limit caffeine and chocolate. No spices or seasonings except salt. During The Next 24 Hours Gradually resume a normal diet, as you feel better and your symptoms lessen. Follow Up with your doctor as advised if you are not improving over the next 2-3 days. Get Prompt Medical Attention if any of the following occur: Constant right-sided lower abdominal pain or increasing general abdominal pain Continued vomiting (unable to keep liquids down) for 24 hours Frequent diarrhea (more than 5 times a day); blood (red or black color) or mucus in diarrhea Reduced urine output or extreme thirst Weakness, dizziness or fainting Unusually drowsy or confused Fever of 100.4F (38C) oral or higher, not better with fever medication Yellow color of the eyes or skin Diarrhea, Uncertain Cause (Adult, Report Pending) Diarrhea has several possible causes. Commonstomach fluis caused by a virus. Food poisoning, bacteria or parasites are other causes for diarrhea. Only diarrhea caused by bacteria or parasites requires treatment with an antibiotic. Diarrhea from a virus or food poisoning improves with simple home treatment. A stool sample is needed to make the diagnosis of an infection with bacteria or parasites. Up to three stool specimens may be required to diagnose This may take up to two days to get the result. It may be necessary to wait until the stool test is complete to make the diagnosis and select the best antibiotic to prescribe. Home Care: If symptoms are severe, rest at home for the next 24 hours or until you are feeling better. You may use acetaminophen (Tylenol) or ibuprofen (Motrin, Advil) to control fever, unless another medicine was prescribed. [NOTE: If you have chronic liver or kidney disease or ever had a stomach ulcer or GI bleeding, talk with your doctor before using these medicines.] (Aspirin should never be used in anyone under 18 years of age who is ill with a fever. It may cause severe liver damage.) Avoid tobacco, caffeine and alcohol, which may worsen your symptoms. If anti-diarrhea medicine was prescribed, take this only as directed. Sometimes anti-diarrhea medicine can make your condition worse if the cause is an infectious diarrhea. Therefore, anti-diarrhea medicine should not be taken for this condition unless advised by your doctor. During The First 12-24 Hours follow the diet below: BEVERAGES: Sport drinks like Gatorade, soft drinks without caffeine; jaquan lucina, mineral water (plain or flavored), decaffeinated tea and coffee. SOUPS: Clear broth, consomm and bouillon DESSERTS: Plain gelatin (Jell-O), popsicles and fruit juice bars. During The Next 24 Hours you may add the following to the above: Hot cereal, plain toast, bread, rolls, crackers Plain noodles, rice, mashed potatoes, chicken noodle or rice soup Unsweetened canned fruit (avoid pineapple), bananas Limit fat intake to less than 15 grams per day by avoiding margarine, butter, oils, mayonnaise, sauces, gravies, fried foods, peanut butter, meat, poultry and fish. Limit fiber; avoid raw or cooked vegetables, fresh fruits (except bananas) and bran cereals. Limit caffeine and chocolate. No spices or seasonings except salt. During The Next 24 Hours Gradually resume a normal diet, as you feel better and your symptoms lessen. Follow Up with your doctor or as advised if you are not improving over the next two days. If you were asked to bring a specimen from home, bring the sample on the day of collection. You may call in 2 days (or as directed) for the results. Get Prompt Medical Attention if any of the following occur: Increasing abdominal pain or constant lower right abdominal pain Continued vomiting (unable to keep liquids down) Frequent diarrhea (more than 5 times a day) Blood in vomit or stool (black or red color) Reduced oral intake Dark urine, reduced urine output Weakness, dizziness, fainting Drowsiness, confusion, stiff neck or seizure Fever of 100.4F (38C) oral or higher, not better with fever medication New rash Promethazine Hydrochloride Oral tablet What is this medicine? PROMETHAZINE (proe METH a zeen) is an antihistamine. It is used to treat allergic reactions and to treat or prevent nausea and vomiting from illness or motion sickness. It is also used to make you sleep before surgery, and to help treat pain or nausea after surgery. How should I use this medicine? Take this medicine by mouth with a glass of water. Follow the directions on the prescription label. Take your doses at regular intervals. Do not take your medicine more often than directed. Talk to your track patrol regarding the use of this medicine in children. Special care may be needed. This medicine should not be given to infants and children younger than 2 years old. What side effects may I notice from receiving this medicine? Side effects that you should report to your doctor or health urgent care nurse practitioner as soon as possible: blurred vision irregular heartbeat, palpitations or chest pain muscle or facial twitches pain or difficulty passing urine seizures skin rash slowed or shallow breathing unusual bleeding or bruising yellowing of the eyes or skin Side effects that usually do not require medical attention (report to your doctor or health urgent care nurse practitioner if they continue or are bothersome): headache nightmares, agitation, nervousness, excitability, not able to sleep (these are more likely in children) stuffy nose What may interact with this medicine? Do not take this medicine with any of the following medications: medicines called MAO Inhibitors like Nardil, Parnate, Marplan, Eldepryl other phenothiazines like trimethobenzamide This medicine may also interact with the following medications: barbiturates like phenobarbital bromocriptine certain antidepressants certain antihistamines used in allergy or cold medicines epinephrine levodopa medicines for sleep medicines for mental problems and psychotic disturbances medicines for movement abnormalities as in Parkinson's disease, or for gastrointestinal problems muscle relaxants prescription pain medicines What if I miss a dose? If you miss a dose, take it as soon as you can. If it is almost time for your next dose, take only that dose. Do not take double or extra doses. Where should I keep my medicine? Keep out of the reach of children. Store at room temperature, between 20 and 25 degrees C (68 and 77 degrees F). Protect from light. Throw away any unused medicine after the expiration date. What should I tell my health care provider before I take this medicine? They need to know if you have any of these conditions: glaucoma high blood pressure or heart disease kidney disease liver disease lung or breathing disease, like asthma prostate trouble pain or difficulty passing urine seizures an unusual or allergic reaction to promethazine or phenothiazines, other medicines, foods, dyes, or preservatives or trying to get breast-feeding What should I watch for while using this medicine? Tell your doctor or health urgent care nurse practitioner if your symptoms do not start to get better in 1 to 2 days. You may get drowsy or dizzy. Do not drive, use machinery, or do anything that needs mental alertness until you know how this medicine affects you. To reduce the risk of dizzy or fainting spells, do not stand or sit up quickly, especially if you are an older patient. Alcohol may increase dizziness and drowsiness. Avoid alcoholic drinks. Your mouth may get dry. Chewing sugarless gum or sucking hard candy, and drinking plenty of water may help. Contact your doctor if the problem does not go away or is severe. This medicine may cause dry eyes and blurred vision. If you wear contact lenses you may feel some discomfort. Lubricating drops may help. See your eye doctor if the problem does not go away or is severe. This medicine can make you more sensitive to the sun. Keep out of the sun. If you cannot avoid being in the sun, wear protective clothing and use sunscreen. Do not use sun lamps or tanning beds/booths. If you are diabetic, check your blood-sugar levels regularly. You have been given the following additional information: Vomiting (6Y-Adult) Diarrhea, Unk Cause (Adult) Report Pendg Promethazine Hydrochloride Oral tablet (Electronically signed by Quincy Shankar Dr. 07/23/2016 15:50)
--- NOTE | 2016-07-23 15:50 | ED MAR SUMMARY ---
..... Medication Administration Record [facility]ly [facility] [address] [place] [address] Patient: FABIANO NOE Visit ID: [id number] 30y, F Weight: 145.1 kg Height/Length: 62 in BMI: 58.6 ALLERGIES: Morphine Sulfate, Tylenol, Vicoden Given 12:17 07/18/2016 Audrey Ulloa R.N. Medication Administered: ZOFRAN [PO] (ONDANSETRON HCL), Dose: 4 mg Tablets PO. Medication Ordered: Zofran PO 4 mg (NOW, for Nausea & Vomiting). Start 13:32 07/18/2016 Audrey Ulloa R.N. Medication Administered: IV NS (SALINE), Dose: IV Fluids, Bolus: 1000 mL wide open, Dispensed: 1000 mL bag, Site: #1 right AC. Medication Ordered: IV NS : initial bolus 1000 mL (1000 mL/hr), then none - for X1 (NOW). Given 13:34 07/18/2016 Audrey Ulloa R.N. Medication Administered: DILAUDID [IVP] (HYDROMORPHONE HCL PF), Dose: 3 mg IVP over 2 minute(s), Site: #1 right AC. Medication Ordered: Dilaudid IV 2 mg (HIGH ALERT MEDICATION, NOW).
--- NOTE | 2016-07-23 15:50 | ED MED RECONCILIATION SUMMARY ---
Patient: FABIANO NOE Medication Reconciliation Report [facility] VisitID: [id number] [place] [address] 30y, F Registration Date/Time: 07/18/2016 Weight: 145.1 kg Height/Length: 62 in. BMI: 58.6 ALLERGIES: Morphine Sulfate, Tylenol, Vicoden The patient's Home Medications are listed below: CONTINUE TAKING THE FOLLOWING MEDICATIONS: Methadone HCl Oral THE FOLLOWING MEDICATIONS NEED TO BE RECONCILED: vits The source(s) of the original Home Medication information: Not obtained. The following Medications were given to the patient in the Emergency Department: Zofran [PO] PO 4 mg, administered: 07/18/2016 12:17:00 PM IV NS IV Fluids bolus 1000 mL wide open, administered: 07/18/2016 1:32:00 PM Dilaudid [IVP] IVP 3 mg, administered: 07/18/2016 1:34:00 PM The following Medications were prescribed to the patient: Phenergan 25 mg suppositories: insert 1 rectally every 8 hours as needed for nausea or vomiting. Dispense twenty (20). No refill. Substitution is permissible -- [place] Shankar Dr.
--- NOTE | 2016-07-23 15:50 | ED MED RECONCILIATION SUMMARY ---
Patient: FABIANO NOE Medication Reconciliation Report [facility] VisitID: [id number] [place] [address] 30y, F Registration Date/Time: 07/18/2016 Weight: 145.1 kg Height/Length: 62 in. BMI: 58.6 ALLERGIES: Morphine Sulfate, Tylenol, Vicoden The patient's Home Medications are listed below: CONTINUE TAKING THE FOLLOWING MEDICATIONS: Methadone HCl Oral THE FOLLOWING MEDICATIONS NEED TO BE RECONCILED: vits The source(s) of the original Home Medication information: Not obtained. The following Medications were given to the patient in the Emergency Department: Zofran [PO] PO 4 mg, administered: 07/18/2016 12:17:00 PM IV NS IV Fluids bolus 1000 mL wide open, administered: 07/18/2016 1:32:00 PM Dilaudid [IVP] IVP 3 mg, administered: 07/18/2016 1:34:00 PM The following Medications were prescribed to the patient: Phenergan 25 mg suppositories: insert 1 rectally every 8 hours as needed for nausea or vomiting. Dispense twenty (20). No refill. Substitution is permissible -- [place] Shankar Dr.
--- NOTE | 2016-07-23 15:50 | ED MAR SUMMARY ---
..... Medication Administration Record [facility] [address] [place] [address] Patient: FABIANO NOE Visit ID: [id number] 30y, F Weight: 145.1 kg Height/Length: 62 in BMI: 58.6 ALLERGIES: Morphine Sulfate, Tylenol, Vicoden Given 12:17 07/18/2016 Audrey Ulloa R.N. Medication Administered: ZOFRAN [PO] (ONDANSETRON HCL), Dose: 4 mg Tablets PO. Medication Ordered: Zofran PO 4 mg (NOW, for Nausea & Vomiting). Start 13:32 07/18/2016 Audrey Ulloa R.N. Medication Administered: IV NS (SALINE), Dose: IV Fluids, Bolus: 1000 mL wide open, Dispensed: 1000 mL bag, Site: #1 right AC. Medication Ordered: IV NS : initial bolus 1000 mL (1000 mL/hr), then none - for X1 (NOW). Given 13:34 07/18/2016 Audrey Ulloa R.N. Medication Administered: DILAUDID [IVP] (HYDROMORPHONE HCL PF), Dose: 3 mg IVP over 2 minute(s), Site: #1 right AC. Medication Ordered: Dilaudid IV 2 mg (HIGH ALERT MEDICATION, NOW).
== END 2016-07-18 15:37 | disposition home or self-care (01) ==
LOC: ED SRH 11:50
DX: O26.891 Other specified pregnancy related conditions, first trimester (principal); R10.9 Unspecified abdominal pain; O21.0 Mild hyperemesis gravidarum; O99.321 Drug use complicating pregnancy, first trimester; F11.23 Opioid dependence with withdrawal; R19.7 Diarrhea, unspecified; R74.0 Nonspecific elevation of levels of transaminase and lactic acid dehydrogenase [LDH]; Z3A.09 9 weeks gestation of pregnancy; Z88.5 Allergy status to narcotic agent; Z88.6 Allergy status to analgesic agent
CPT/HCPCS: 90004; 90100; 90197; 92235; 93070; 95059